=== PATIENT | male | born 1965 | race Caucasian/White ===

== ENCOUNTER 2020-06-30 14:00 | Day surgery (SDC) | payer OTHER, MEDICARE ==
[~2020-06-30] VITALS: Ht 182 cm; Wt 100.0 kg
[2020-06-30 12:31] LABS: HEMOGLOBIN 14.6 g/dL (13.3-17.7); MEAN PLATELET VOLUME 9.2 fL (9.0-12.2); WHITE BLOOD COUNT 6.2 10^3/uL (4.3-11.0)
[2020-06-30 12:47] LABS: PROTHROMBIN TIME PATIENT 13.1 SEC (12.2-14.7)
[2020-06-30 12:54] LABS: ALANINE AMINOTRANSFERASE 41 U/L (0-55); ALBUMIN 4.4 GM/DL (3.2-4.5); ALKALINE PHOSPHATASE 42 U/L (40-136); BILIRUBIN,TOTAL 0.4 MG/DL (0.1-1.0); BUN/CREATININE RATIO 14; CALCIUM 9.3 MG/DL (8.5-10.1); CARBON DIOXIDE 23 MMOL/L (21-32); CHLORIDE 108 MMOL/L (98-107); CREATININE SERUM 0.95 MG/DL (0.60-1.30); GFR ESTIMATED > 60; GLUCOSE 83 MG/DL (70-105); SODIUM 140 MMOL/L (135-145); TOTAL PROTEIN 7.4 GM/DL (6.4-8.2); TRIGLYCERIDES 116 MG/DL (<150)
[2020-06-30 12:55] LABS: CHOLESTEROL 172 MG/DL (< 200); HDL CHOLESTEROL 56 MG/DL (40-60); VLDL CHOLESTEROL 23 MG/DL (5-40)
[~2020-06-30 14:00] MED LIST: ASPI-999 PO; HEParin (CATH LAB) 2,000 ML IV ONE; LIDOCAINE 1% INJ 20 ML 20 ML VIAL ONE; LISI10TA PO; LISI20TA26 PO; MELO15TA39 PO; METH4TAB PO; MIDAZOLAM 5 MG/5 ML (VERSED) VIAL ONE; NS IV 1000 ML 1,000 ML IV SCH; NS IV 1000 ML 1,000 ML ONE; OMG1KC PO; SIMV20TA3 PO; SIMV40TA25 PO; fentaNYL INJ 100 MCG/2 ML AMP ONE
--- NOTE | 2020-06-30 14:05 | Cardiac Procedure Note-CS/ASA ---
Pre-Procedure Note Pre-Op Procedure Note H&P Reviewed The H&P was reviewed, patient examined and no changes noted. Date H&P Reviewed: Jun 30, 2020 Time H&P Reviewed: 13:30 Conscious Sedation Pre-Proced Time 13:30 ASA Score 3 For ASA 3 and 4: Consider anesthesia and medical clearance. Also, for patients with a history of failed moderate sedation consider anesthesia. Airway Lungs Heart ASA score ASA 1: a normal healthy patient ASA 2: a patient with a mild systemic disease (mid diabetes, controlled hypertension, obesity ASA 3: a patient with a severe systemic disease that limits activity (angina, COPD, prior Myocardial infarction) ASA 4: a patient with an incapacitating disease that is a constant threat to life (CHF, renal failure) ASA 5: a moribund patient not expected to survive 24 hrs. (ruptured aneurysm) ASA 6: a declared brain- patient whose organs are being harvested. For emergent operations, add the letter E after the classification Mallampati Classification Grade 1 Sedation Plan Analgesia, Amnesia, Plan communicated to team members, Discussed options with patient/fam, Discussed risks with patient/fam The patient is an appropriate candidate to undergo the planned procedure, sedation, and anesthesia. The patient immediately re-assessed prior to indication. JANESSA GLYNN MD FACP FAC CCDS Jun 30, 2020 14:05
--- NOTE | 2020-06-30 14:07 | Discharge Inst-Post CATH ---
Discharge Inst-CATH/EP Post Cardiac Cath/EP D/C Inst Follow Up/Plan F/u with Dr Etienne in 2 weeks ACTIVITY * Go Home directly and rest. * Limit activity of the leg (or wrist if it was used) for 7 days including aerobics, swimming, jogging, bicycling, etc. * Restrict stair-climbing for 7 days if possible, if not, climb up with your n on-cath leg, then bring together on the same step. * Avoid lifting, pushing, pulling or excessive movement of the affected ex tremity for 7 days. * Customary sexual activity may be resumed after 2 days-use caution not to use a position that strains or causes pain to the affected extremity. * No driving for 24 hours. * NO SMOKING. * Avoid straining for bowel movements for 7 days. * Gentle walking on level ground is allowed. * Returning to work will depend on the type of procedure and the results. Your doctor will discuss this with you. CALL YOUR DOCTOR FOR ANY OF THE FOLLOWING: *If bleeding from the puncture site occurs- Apply gentle pressure to site with clean cloth and call your doctor or EMS. * If a knot or lump forms under the skin, increases in size, or causes pain. * If bruising appears to be worsening or moving further down your leg instead of disappearing. * Temperature above 101 F. CARE OF YOUR GROIN INCISION; * Bruising or purple discoloration of the skin near the puncture site is common. * You may shower only, no bathtub bathing for 5 days. Be careful to avoid slipping as your leg may feel stiff. * If a closure device was used on your femoral artery, please see the attached guide regarding care of the device and your leg. * Leave dressing on FOR 24 hours. CARE OF YOUR WRIST INCISION; * Bruising or purple discoloration of the skin near the puncture site is common. * You may shower. * DO NOT submerge wrist. * Leave dressing on FOR 24 hours. JANESSA ETIENNE MD FACP FAC CCDS Jun 30, 2020 14:07
--- NOTE | 2020-06-30 14:07 | Discharge Inst-Cardiology ---
Discharge Inst-Cardiac Discharge Medications Continued Medications: Lisinopril (Lisinopril) 20 Mg Tablet 20 MG PO DAILY, TAB Meloxicam (Meloxicam) 15 Mg Tablet 15 MG PO DAILY PRN, TAB Harris 3 Polyunsat Fatty Acids (Fish Oil 1,000 mg Capsule) 1,000 Mg Cap 1000 MG PO DAILY, CAP Simvastatin (Simvastatin) 40 Mg Tablet 40 MG PO DAILY, TAB Discontinued Medications: Aspirin (Aspirin) 81 Mg Tab.chew 81 MG PO DAILY, TAB JANESSA GLYNN MD FACP FAC CCDS Jun 30, 2020 14:07
[2020-06-30] MEDS ORDERED: NS IV 1000 ML 1,000 ML IV SCH (14:15)
[2020-06-30] MEDS ORDERED: PATIENT MAY USE OWN MEDS, ALL PO SCH (14:15)
--- NOTE | 2020-06-30 14:23 | CARDIAC CATHETERIZATION ---
DATE OF SERVICE: 06/30/2020 CARDIAC CATHETERIZATION The patient is a 55-year-old gentleman who has multiple coronary artery disease risk factors and who has had symptoms of progressive angina and shortness of breath. Cardiac catheterization was carried out today after having obtained an informed consent. DESCRIPTION OF PROCEDURE: He was brought to the cardiac catheterization laboratory in a fasting state. Right groin was prepared and draped in the usual sterile fashion. Lidocaine 1% was used for local anesthesia. Modified Seldinger technique was used to advance a 5-Bangladeshi sheath into the right femoral artery, 5-Bangladeshi JL4 catheter for left coronary angiography, 5-Bangladeshi JR4 catheter for right coronary angiography, 5-Bangladeshi pigtail catheter was used for left heart catheterization and left ventricular angiography. Angiography of the right femoral artery was carried out through the sheath. Mynx was used to achieve hemostasis following sheath removal. He tolerated the procedure well. HEMODYNAMICS: Left ventricular end-diastolic pressure following coronary angiography was 6 mmHg. There was no significant pressure gradient on pullback across the aortic valve. CORONARY ANGIOGRAPHY: Left main coronary artery, left circumflex artery, right coronary artery do not exhibit angiographically significant disease. Left circumflex artery is dominant. LEFT VENTRICULAR ANGIOGRAPHY: Left ventricular angiography was carried out in the right anterior oblique projection. Global left ventricular systolic function normal. No regional wall motion abnormalities are seen. Left ventricular ejection fraction is approximately 60%. CONCLUSIONS: 1. No angiographically significant coronary artery disease. 2. Normal left ventricular end-diastolic pressure. 3. Normal global left ventricular systolic function with ejection fraction approximately 60%. DISCUSSION AND RECOMMENDATIONS: Based on results of the study, his symptoms do not appear to be of coronary origin. Continuing risk factor modification is advised. Outpatient followup is advised. Job ID: [id number] DocumentID: [id number] Dictated Date: 06/30/2020 14:10:58 Birth Attendant Date: 06/30/2020 14:22:10 Dictated By: JANESSA GLYNN MD, MA, FACP, FACC,
[2020-06-30 17:30] VITALS: BP 134/81
== END 2020-06-30 17:30 | disposition home or self-care (01) ==
LOC: CATH 14:00 → SDC 14:20 → CATH 17:30
PROVIDERS: ATTEND Internal Medicine Cardiovascular Disease
DX: I20.0 Unstable angina (principal); I10 Essential (primary) hypertension; E11.9 Type 2 diabetes mellitus without complications; E78.2 Mixed hyperlipidemia; Z79.82 Long term (current) use of aspirin; Z79.899 Other long term (current) drug therapy; Z88.5 Allergy status to narcotic agent; Z85.038 Personal history of other malignant neoplasm of large intestine
CPT/HCPCS: 36415; 36430; 80053; 80061; 85027; 85610; 85730; 87081; 93458

== ENCOUNTER → 2020-07-06 | Outpatient (CLI) | payer MEDICARE, OTHER ==
[~2020-07-06] MED LIST changes: -HEParin (CATH LAB) 2,000 ML IV ONE; -LIDOCAINE 1% INJ 20 ML 20 ML VIAL ONE; -MIDAZOLAM 5 MG/5 ML (VERSED) VIAL ONE; -NS IV 1000 ML 1,000 ML IV SCH; -NS IV 1000 ML 1,000 ML ONE; -fentaNYL INJ 100 MCG/2 ML AMP ONE
== END ==
LOC: CARD 14:30
PROVIDERS: ATTEND Internal Medicine Cardiovascular Disease
DX: I51.7 Cardiomegaly (principal)
CPT/HCPCS: 93225; 93226; 93306

== ENCOUNTER 2020-10-27 09:00 | Day surgery (SDC) | payer MEDICARE, OTHER ==
[~2020-10-27] VITALS: Ht 182.9 cm; Wt 98.4 kg
--- OUTSIDE RECORDS SUMMARY | 2020-10-27 07:56 | XMS REPORT | Encounter Summary ---
Author Author [facility] Organization [facility] Address Unknown Phone Unavailable Care Team Providers Care Skull Splitter Name Role Phone Dpt [facility] PCP Brenda Hauser PA-C Unavailable Unavailable Melodie Etienne MD Unavailable Reason for Visit * Reason Onset Date Comments Appointment Request 09/29/2020 Encounter Details Care Team Description Date Type Department Marilee Delatorre, STEEL MOLDER-LABORER CEMENT GUN PLACING [address] [place] [address] [phone] Appointment Request 09/29/2020 Telephone Oncology: [facility] [address] [place] [address] Social History Date Tobacco Use Types Packs/Day Years Used Never Smoker Smokeless Tobacco: Chew Current User Comments Alcohol Use Standard Drinks/Week Yes 2 (1 standard drink = 0.6 o z pure alcohol) Alcohol Habits Answer Date Recorded How often do you have a drink containing alcohol? No t asked How many drinks containing alcohol do you have on No t asked a typical day when you are drinking? How often do you have six or more drinks on one Weekly 11/01/2019 occasion? Sex Assigned at Date Recorded Male 11/04/2019 1:27 PM CDT Date Recorded COVID-19 Exposure Response 09/24/2020 11:58 AM CDT In the last month, have you been in contact with No / Unsure someone who was confirmed or suspected to have Coronavirus / COVID-19? documented as of this encounter Functional Status Date of Assessment Functional Status Response 11/27/2019 Does the patient have a hearing impairment: No 11/27/2019 Does the patient have a visual impairment: Yes documented as of this encounter Miscellaneous Notes * Telephone Encounter - Minh Marroquin - 09/29/2020 2:09 PM CDT Spoke with patient and scheduled 6 mos rtc w/psa lab prior for provider Marilee aguilera. * Telephone Encounter - Minh Marroquin - 09/29/2020 2:09 PM CDT ----- Message from PASHA Walsh sent at 09/28/2020 6:14 PM CDT ----- Regarding: schedule a FU visit Minh, Will you please schedule a follow-up visit to see me in 6 months with a PSA 2 to 7 days prior to our clinic visit?Please call him with official date and time.The orders are inThank you documented in this encounter Plan of Treatment Not on filedocumented as of this encounter Visit Diagnoses Not on filedocumented in this encounter Additional Health Concerns Assessment Noted Time A fall risk assessment has been completed for the pat ient 08/31/2020 1:08 PM CDT documented as of this encounter
--- OUTSIDE RECORDS SUMMARY | 2020-10-27 07:56 | XMS REPORT | Encounter Summary ---
Author Author [facility] Organization [facility] Address Unknown Phone Unavailable Care Team Providers Care Breaker Operator Name Role Phone Dpt [facility] PCP Brenda Hauser PA-C Unavailable Unavailable Melodie Etienne MD Unavailable Reason for Visit * Reason Onset Date Comments Medication Follow-up 09/02/2020 Antibiotic for bi opsy... Encounter Details Care Team Description Date Type Department Marilee Delatorre, PHYSICAL SCIENCES INSTRUCTOR-CAUSE ANALYST [address] [place] [address] [phone] Medication Follow-up (Antibiotic for bio psy...) 09/02/2020 Telephone Oncology: [address] [address] Social History Date Tobacco Use Types Packs/Day [...] PM CDT Date Recorded COVID-19 Exposure Response 08/31/2020 12:44 PM CDT In the last month, have you been in contact with No / Unsure someone who was confirmed or suspected to have Coronavirus / COVID-19? documented as of this encounter Functional Status Date of Assessment Functional Status Response 11/27/2019 Does the patient have a hearing impairment: No 11/27/2019 Does the patient have a visual impairment: Yes documented as of this encounter Ordered Prescriptions Start Date End Date Prescription Sig Dispensed Refills 09/23/2020 09/26/2020 ciprofloxacin (CIPRO) 500 Take one 6 tablet 0 mg tablet tablet by mouth twice daily for 3 days. Start day prior to prostate biopsy. documented in this encounter Miscellaneous Notes * Telephone Encounter - Marilee Delatorre APRN-NP - 09/02/2020 5:11 PM CDT I called and spoke with Torrey as I received a message from John at the [facility] pharmacy regarding the ciprofloxacin prescription that I sent in that it would n ot be [place] under the [facility] they would prefer to change to Bactrim DX or another antibiotic. We prefer to stay in the fluoroquinolone group. Mr. Magana stated t hat his letter states he has to use a community-based pharmacy and [facility] does not participate there locally. He does use [place] [facility]. I did call [place] [facility], the Cipro 500 mg, 1 tablet twice a day, total of 6 pills will cost him $4, he is okay to send this prescription to the local pharmacy. Torrey provided me with a website to look at www.[place]findlocations to locate a community-based pharmacy. He states he did call the [facility] in [place] and they do not participate in the community-based care that the [place] is talking about. I called and left a message with John at the [facility] pharmacy to let them know that I sent his prescription to local pharmacy as would prefer to stay in the f luoroquinolone group for his prostate biopsy. I provided [phone] if he had any questions or concerns. documented in this encounter Plan of Treatment Not on filedocumented as of this encounter Visit Diagnoses Not on filedocumented in this encounter Discontinued Medications Start Date End Date Medication Sig Discontinue Reason 09/23/2020 09/02/2020 ciprofloxacin (CIPRO) 500 Take one Reorder mg tablet tablet by mouth twice daily for 3 days. Start day prior to prostate biopsy. documented as of this encounter Additional Health Concerns Assessment Noted Time A fall risk assessment has been completed for the pat ient 08/31/2020 1:08 PM CDT documented as of this encounter
--- OUTSIDE RECORDS SUMMARY | 2020-10-27 07:56 | XMS REPORT | Clinical Summary ---
Author Author [facility] Organization [facility] Address Unknown Phone Unavailable Care Team Providers Care Line Repairer Tower Name Role Phone [facility] P[facility] Brenda Hauser PA-C Unavailable Unavailable Melodie Etienne MD Unavailable Source Comments Some departments are not documenting in the electronic medical record. If you d o not see the information that you expected, contact Release of Information in [facility] Information Management department at [phone] for further assistan ce in locating additional records.[facility] Allergies Comments Active Allergy Reactions Severity Noted Date Naproxen RASH, HIVES Medium 09/24/2010 Medications End Date Status Medication Sig Dispensed Refills Start Date Active aspirin EC 325 mg tablet Take 325 mg 0 by mouth daily. Active simvastatin (ZOCOR) 10 mg Take 10 mg by 0 06/04 tablet mouth daily. 5 Active lisinopriL (ZESTRIL) 40 Take 40 mg by 0 mg tablet mouth daily. Active hydroCHLOROthiazide Take 25 mg by 0 (HYDRODIURIL) 25 mg mouth daily. tablet Active docosahexaenoic acid/epa Take by 0 (FISH OIL PO) mouth daily. Active gabapentin (NEURONTIN) Take 300 mg 0 02/24/ 01 300 mg capsule by mouth at 7 bedtime as needed. Active temazepam (RESTORIL) 15 0 08/05/ mg capsule 1 Active meloxicam (MOBIC) 15 mg Take 15 mg by 0 tablet mouth as Needed for Pain. Active tamsulosin (FLOMAX) 0.4 Take one 30 capsule 3 / mg capsule capsule by 1 mouth daily. Do not crush, chew or open capsules. Take 30 minutes following the same meal each day. Active Problems Problem Noted Date Elevated PSA 08/31/2020 Last Assessment & Plan: Formatting of this note might be differ ent from the original. I had the pleasure of visiting with Mr. Adalberto Mckinney to discuss his PSA. I reviewed what PSA is and why it is us ed in the screening for prostate cancer. I then explained how PSA level s factor into decision making for further prostate cancer testing. Addit ionally, we reviewed how his current health factors into the decision to pur jay prostate cancer screening. We then discussed initial steps for a b iopsy naive patient with an elevated PSA. Specifically I reviewed the role of transrectal ultrasound guided prostate biopsies as the standar d of care for further testing. I reviewed the procedural risks, includin g hematuria, hematospermia, hematochezia, pain, infection, and even transient erectile dysfunction. Additional options reviewed included up -front mpMRI with directed biopsy if a lesion is identified versus standa rd biopsy if the mpMRI were negative. I explained that this approa ch may reduce the need for a biopsy and improve the accuracy, however, this is not the standard of care approach, and therefore there is the ri sk that he would be liable for out of pocket expense if he were to choose upfront MRI, patient states that he cannot have an MRI. Similarly I reviewed the role of biomar kers in improving our ability to assess the risk of harboring prostate c ancer, specifically the ExoDx. Ultimately the patient elected repeat P SA today. Therefore our plan is as follows: 1. PSA today, will call with the resul ts 2. If PSA is still elevated, will purs ue prostate biopsy 3. Biopsy instructions reviewed in cli cecily and provided in AVS Chronic bilateral low back pain with left-sided sciat ica 11/27/2019 Lumbar radiculopathy 11/06/2019 Lumbar spondylosis 11/06/2019 Encounters Care Team Description Date Type Specialty Marilee Delatorre APRN-NP Appointment Request 09/29/2020 Telephone Oncology Marilee Delatorre APRN-NP Results (pathology from prostate biopsy) 09/28/2020 Telephone Oncology Rosalinda Cody MD Elevated PSA (Primary Dx) 09/24/2020 Procedure visit Oncology 09/24/2020 Travel Marilee Delatorre APRN-NP Medication Follow-up (Antibiotic for bio psy...) 09/02/2020 Telephone Oncology Marilee Delatorre APRN-NP Elevated PSA (Primary Dx) 08/31/2020 Office Visit Oncology Marilee Delatorre APRN-NP Results (PSA from today after clinic vis it) 08/31/2020 Telephone Oncology 08/31/2020 Travel Marilee Delatorre APRN-NP Navigation Assessment 08/23/2020 Telephone Oncology from Last 3 Months Surgical History Surgery Date Site/Laterality Comments ROTATOR CUFF REPAIR 03/06/2012 - Left 03/05/2013 HX KNEE SURGERY 03/06/1979 - Right torn meniscus 03/05/1980 SHOULDER SURGERY 03/06/2010 - Right bone spur 03/05/2011 ANKLE SURGERY 01/04/2017 Right 2 moles - 02/02/2017 CATARACT REMOVAL Bilateral HX HEART CATHETERIZATION 07/04/2020 - palpitations, going to have sleep study 08/03/2020 Medical History Medical History Date Comments Hypertension History of colon cancer stage 4 History of skin cancer Cancer of colon (HCC) 2013 colon resection, 8 rounds of chemotherapy at the [facility] Cancer of skin 2019 melanoma, right inn er ankle, right calf, right side of back, left arm Back pain Family History Medical History Relation Name Comments Hypertension Father Hypertension Mother COPD Sister Georgina Post-Traumatic Stress Sister Justine Disorder (PTSD) Relation Name Status Comments Father alzheimers (Age 80) Half Brother Humza Alive moms side Half Brother Alive moms side Mother dies in early 60's Sister Georgina Alive Sister Justine Alive Social History Date Tobacco Use Types Packs/Day [...] Date Recorded Male 11/04/2019 1:27 PM CDT Last Filed Vital Signs Reading Time Taken Comments Vital Sign 111/55 09/24/2020 12:29 PM CDT Blood Pressure 73 09/24/2020 12:29 PM CDT Pulse 36.4 C (97.5 F) 09/24/2020 12:29 PM CDT Temperature 18 09/24/2020 12:29 PM CDT Respiratory Rate 100% 09/24/2020 12:29 PM CDT Oxygen Saturation - - Inhaled Oxygen Concentration 96.6 kg (213 lb) 09/24/2020 12:29 PM CDT Weight 177.3 cm (5' 9.8") 09/24/2020 12:29 PM CDT Height 30.74 09/24/2020 12:29 PM CDT Body Mass Index Plan of Treatment Health Maintenance Due Date Last Done Comments MEDICARE ANNUAL WELLNESS 1965 VISIT HIV SCREENING 06/23/1978 DTAP/TDAP VACCINES (1 - 06/23/1981 Tdap) HEPATITIS C SCREENING 06/23/1981 PHYSICAL (COMPREHENSIVE) 06/23/1981 EXAM COLORECTAL CANCER 06/23/2013 SCREENING SHINGLES RECOMBINANT 06/23/2013 VACCINE (1 of 2) INFLUENZA VACCINE 12/04/2020 Procedures Comments Procedure Name Priority Date/Time Associated Diag nosis OK US GUIDANCE NEEDLE Routine 09/24/2020 Elevated PSA PLACEMENT IMG S&I 1:00 PM CDT OK PROSTATE NEEDLE BIOPSY Routine 09/24/2020 Elev ated PSA ANY APPROACH 1:00 PM CDT HC LEVEL 4 PROSTATE 09/24/2020 BIOPSY 12:03 PM CDT HC PROSTATIC SPECIF Routine 08/31/2020 Elevated P SA AG(PSA);TOT 1:58 PM CDT from Last 3 Months Results * TRUS/PROSTATE BX/NEEDLE GUIDE UROLOGY (09/24/2020 1:00 PM CDT) Narrative Performed At Rosalinda Cody MD 09/24/2020 1:38 PM [facility] OUT[facility] Procedure: Transrectal ultrasound, ul trasound interpretation, periprostatic block, and 12 prostate bi opsies. Surgeon: Rosalinda Cody MD Anesthesia: 1% Lidocaine Block Complications: None. Blood Loss: Negligible. Indication for Procedure: 55 y.o. mal e w/ an elevated PSA. Completed enemas & started abx, as dire cted. Procedure: He was placed in the left lateral decubitus position. Time out was performed with verificatio n of patient name and date of by the patient and team. RAMIREZ performed. No palpable prostate nodules or induration . 7.5 MHz TRUS introduced into rectum w/o difficulty. Prostate visualized & scanned from base to apex & lateral lobe to lateral lobe. No hyper- & hypoechoic lesions. Periprostatic 1% Lidocaine block performed bilaterally at the junction of the pros jimenez base & seminal vesicles; 5 cc injected to each side. TRUS Prostate Vol = 50.5 mL (R)-side: 6 biopsy cores (L)-side: 6 biopsy cores Digital pressure applied to prostate x 1-2 min following PNBx. He tolerated the procedure well, and le ft the exam room in a pleasant disposition. Verbal & writte n post-procedure instructions given to pt. ASSESSMENT/ PLAN: 1. Elevated PSA - TRUS/ PNBx performed today, as detail ed above. - Complete abx, as directed. - Patient will be called with results. - RTC based on biopsy results. Performing Organization Address City/State/ZIP Code P carol Number OTHER OUTSIDE LAB * SURGICAL PATHOLOGY (09/24/2020 12:03 PM CDT) PATHOLOGY [email or web address] Department of Pathology and Laboratory Medicine [address] [place] [id number] Surgical Pathology Office: [phone] SURGICAL PATHOLOGY REPORT NAME: ADALBERTO RUSSO SURG PATH #: [id number] MR #: [id number] SPECIMEN CLASS: SI BILLING #: [id number] ALT ID #: LOCATION: [id number] DATE OF PROCEDURE: 09/24/2020 AGE: 55 SEX: M DATE RECEIVED: 09/24/2020 : 1965 TIME RECEIVED: 12:03 PHYSICIAN: ROSALINDA CODY MD DATE OF REPORT: 09/25/2020 COPY TO: DATE OF PRINTIN09/25/2020 ############################## ############################## ############ Final Diagnosis: A. Prostate, "left lateral base", needle biopsy: Benign prostatic tissue. B. Prostate, "left medial base", needle biopsy: Benign prostatic tissue. C. Prostate, "left lateral mid", needle biopsy: Benign prostatic tissue. D. Prostate, "left medial mid", needle biopsy: Benign prostatic tissue. E. Prostate, "left lateral apex", needle biopsy: Benign prostatic tissue. F. Prostate, "left medial apex", needle biopsy: Benign prostatic tissue. G. Prostate, "right lateral base", needle biopsy: Benign prostatic tissue. H. Prostate, "right medial base", needle biopsy: Benign prostatic tissue. I. Prostate, "right lateral mid", needle biopsy: Benign prostatic tissue. J. Prostate, "right medial mid", needle biopsy: Benign prostatic tissue. K. Prostate, "right lateral apex", needle biopsy: Benign prostatic tissue. L. Prostate, "right medial apex", needle biopsy: Benign prostatic tissue. Attestation: By this signature, I attest that I have personally formulated the final interpretation expressed in this report and that the above diagnosis is based upon my examination of the slides and/or other material indicated in this report. +++ +++ Nancy Gonzalez DO, Resident ksw/09/24/2020 ############################## ############################## ############ Material Received: A: left lateral base B: left medial base C: left lateral mid D: left medial mid E: left lateral apex F: left medial apex G: right lateral base H: right medial base I: right lateral mid J: right medial mid K: right lateral apex L: right medial apex History: 55-year-old male. Gross Description: A. Received in formalin labeled "left lateral base" is a cylindrical core of plasencia-white tissue measuring 1.5 x 0.1 x 0.1 cm. The specimen is submitted in cassette A1. (crow) B. Received in formalin labeled "left medial base" is a cylindrical core of plasencia-white tissue measuring 1.5 x 0.1 x 0.1 cm. The specimen is submitted in cassette B1. (crow) C. Received in formalin labeled "left lateral mid" is a cylindrical core of plasencia-white tissue measuring 1.4 x 0.1 x 0.1 cm. The specimen is submitted in cassette C1. (crow) D. Received in formalin labeled "left medial mid" is a cylindrical core of plasencia-white tissue measuring 1.5 x 0.1 x 0.1 cm. The specimen is submitted in cassette D1. (crow) E. Received in formalin labeled "left lateral apex" is a cylindrical core of plasencia-white tissue measuring 1.3 x 0.1 x 0.1 cm. The specimen is submitted in cassette E1. (crow) F. Received in formalin labeled "left medial apex" is a cylindrical core of plasencia-white tissue measuring 1.5 x 0.1 x 0.1 cm. The specimen is submitted in cassette F1. (crow) G. Received in formalin labeled "right lateral base" is a cylindrical core of plasencia-white tissue measuring 1.5 x 0.1 x 0.1 cm. The specimen is submitted in cassette G1. (crow) H. Received in formalin labeled "right medial base" is a cylindrical core of plasencia-white tissue measuring 1.4 x 0.1 x 0.1 cm. The specimen is submitted in cassette H1. (crow) I. Received in formalin labeled "right lateral mid" is a cylindrical core of plasencia-white tissue measuring 1.5 x 0.1 x 0.1 cm. The specimen is submitted in cassette I1. (crow) J. Received in formalin labeled "right medial mid" is a cylindrical core of plasencia-white tissue measuring 1.4 x 0.1 x0.1 cm. The specimen is submitted in cassette J1. (crow) K. Received in formalin labeled "right lateral apex" is a cylindrical core of plasencia-white tissue measuring 1.5 x 0.1 x 0.1 cm. The specimen is submitted in cassette K1. (crow) L. Received in formalin labeled "right medial apex" is a cylindrical core of plasencia-white tissue measuring 1.5 x 0.1 x 0.1 cm. The specimen is submitted in cassette L1. (crow) gm09/24/2020 Specimen Performing Organization Address City/State/ZIP Code P carol Number [facility] [address] [place] [address] * PROSTATIC SPECIFIC ANTIGEN-PSA (08/31/2020 1:58 PM CDT) Prostatic 5.54 (H) <3.01 NG/ML [facility] Specific Comment: Antigen REFERENCE RANGES AGE PSA VALUE <50 <=1.5 50-54 <=2.0 55-59 <=3.0 60-69 <=4.0 70+ <=6.0 Specimen Blood Performing Organization Address City/State/ZIP Code P carol Number [facility] [address] [place] [address] from Last 3 Months Insurance Type Payer Benefit Subscriber ID Effective Phone Address Plan / Dates Group Medicare MEDICARE MEDICARE [id number] 2003-P PART A AND resent B [facility] [id number] 2020-1 2020 Advance Directives Patient Pet[employer]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
--- OUTSIDE RECORDS SUMMARY | 2020-10-27 07:56 | XMS REPORT | Encounter Summary ---
Author Author [facility] Organization [facility] Address Unknown Phone Unavailable Care Team Providers Care Superintendent Circus Name Role Phone [facility]pt [facility] PCP Brenda Hauser PA-C Unavailable Unavailable Melodie Etienne MD Unavailable Reason for Visit * Reason Onset Date Comments Results 09/28/2020 pathology from pros jimenez biopsy Encounter Details Care Team Description Date Type Department Marilee Valencia, CELLULOID TRIMMER-TOWER [employer]FFIC CONTROL SPECIALIST [address] [place] [address] [phone] Results (pathology from prostate biopsy) 09/28/2020 Telephone Oncology: [address] [phone] Social History Date Tobacco Use Types Packs/Day [...] Date End Date Prescription Sig Dispensed Refills 09/28/2020 tamsulosin (FLOMAX) 0.4 Take one 30 capsule 3 mg capsule capsule by mouth daily. Do not crush, chew or open capsules. Take 30 minutes following the same meal each day. documented in this encounter Miscellaneous Notes * Addendum Note - Marilee Valencia APRN-NP - 09/28/2020 6:42 PM CDT Addended by: MARILEE VALENCIA on: 09/28/2020 06:42 PM Modules accepted: Orders * Telephone Encounter - Marilee Valencia APRN-NP - 09/28/2020 6:12 PM CDT I called and spoke with Gene regarding his pathology results from his prostate b iopsy that was performed on 09/24/2020., Pathology revealed benign prostatic ti ssue. I advised we would recommend to continue to monitor his PSA every 6 month s, he is agreeable to this plan. I advised I would place some orders and send a message to the chef passenger vessel for him to be contacted with an official date and time for return visit in 6 months. He appreciated the phone call. He did not have any further questions. He inquired since his biopsy pathology is negative, to help address his urinatio n, he does have nocturia, hesitancy and intermittent break in his stream. He do es feel that he empties his bladder most the time. I did advise we could start him on tamsulosin 0.4 mg daily, he was agreeable to this plan and wanted this se nt to the [facility]. I did review possible side effects of orthostatic hypotension and to take the me dication before bed and retrograde ejaculation. Final Diagnosis: A. Prostate, "left lateral base", [...] medial apex", needle biopsy: Benign prostatic tissue. documented in this encounter Plan of Treatment Order Schedule Name Type Priority Associated Diag noses Expected: 03/27/2021 (Approximate), Expi res: 09/28/2021 PROSTATIC SPECIFIC Lab Routine Elevated PS A ANTIGEN-PSA documented as of this encounter Visit Diagnoses Diagnosis Elevated PSA - Primary Elevated prostate specific antigen (PSA ) documented in this encounter Additional Health Concerns Assessment Noted Time A fall risk assessment has been completed for the pat ient 08/31/2020 1:08 PM CDT documented as of this encounter
--- OUTSIDE RECORDS SUMMARY | 2020-10-27 07:56 | XMS REPORT | Encounter Summary ---
Author Author [facility] Organization [facility] Address Unknown Phone Unavailable Care Team Providers Care Glass Inspector Name Role Phone [facility] P[facility] Brenda Hauser PA-C Unavailable Unavailable Melodie Etienne MD Unavailable Reason for Visit * Reason Comments Procedure TRUS Bx Encounter Details Care Team Description [place] [address] [place] [address] Elevated PSA (Primary Dx) 09/24/2020 Procedure visit Oncology: Zaki rg, [facility] [address] [place] [address] Social History Date Tobacco Use Types Packs/Day [...] / COVID-19? documented as of this encounter Last Filed Vital Signs Reading Time Taken [...] 09/24/2020 12:29 PM CDT Body Mass Index documented in this encounter Functional Status Date of Assessment Functional Status Response 11/27/2019 Does the patient have a hearing impairment: No 11/27/2019 Does the patient have a visual impairment: Yes documented as of this encounter Patient Instructions * Patient Instructions* Roseanne Jain, RN - 09/24/2020 1:00 PM CDT Images from the original note were not included. Prostate Biopsy Cancer occurs when abnormal cells form a tumor. A tumor is a lump of cells that grows uncontrolled. Early tests that may indicate cancer of the prostate include a digital rectal exam, a PSA (prostate specific antigen blood test), ultrasound, and others. A core needle biopsy will be done if your healthcare provider thinks you have prostate cancer. A thin needle is used to remove small samples of pr ostate tissue. Often a few biopsies are taken. These samples are checked for can cer. Taking tissue samples A biopsy takes about 15to 20 minutes. You may be given an enema or suppository before the biopsy to clear the bowels. Antibiotics are given at least an hour b efore the biopsy. During the procedure: You will be given antibiotics to prevent infection. You may be given a sedative, local pain killer, or pain medicine. A small ultrasoundprobe is put into the rectum as you lie on your side. A p icture of your prostate can then be seen on a screen. This is called a transrect al ultrasound (TRUS). Your healthcare provider will use the TRUS picture as a guide. He or she will use a thin needle to remove tiny tissue samples from some sites in the prostate. These tissue samples are sent to the pathology department. They are looked at under a microscope so a diagnosis can be made. Risks and possible complications of core needle biopsy Infection Blood in urine, stool, or semen Pain The biopsy misses the tumor Home care You may have had the biopsy done through your rectum, your urethra, or through t he skin between your scrotum and rectum. Your healthcare provider will tell you what to do after the biopsy. These instructions are based on your health conditi on, the type of biopsy, and your providers practices. Your provider may give you pain medicine such as acetaminophen or ibuprofen f or discomfort or pain. Follow your providers instructions for taking these me dicines. Dont take aspirin or ibuprofen after the procedure.If you have an ongoing (chronic) liver or kidney disease, talk with your provider before taking these medicines. Also talk with your provider if youve had a stomach ulcer or GI (gastrointestinal) bleeding. Let your provider know all the medicines you c urrently take. You may need to take antibiotics for 1 to 2 days. This will help prevent an i nfection. Signs of an infection include chills, pain, or fever. You may be told to drink 8 ounces of water every 30 minutes for 2 hours. This will help ease any discomfort. You can also take a warm bath. Or you can put a warm, damp washcloth over your urethra to help ease the pain. You may see minor bleeding after the procedure. This is normal and often need s no treatment. You may see blood in your urine or semen (rust color). This may last for 1 to 2 months. You may also have light bleeding from your rectum if you have hemorrhoids. This can last up to 7- to 14 days. When you urinate you may go more often, feel burning, and see pink-tinged uri ne for up to 7 to 14 days after the biopsy. Your provider will tell you when you can go back to your normal activities. T his includes sex, exercise, and straining physically. Discuss these with your pr ovider. When to seek medical advice Call your healthcare provider right away if any of these occur: You arent able to urinate, with or without your bladder feeling full, or s ee that you have less flow of urine Chills Fever of 100.4F (38C) or higher, or as directed by your provider Severe pain Signs of an infection that is getting worse. These include worsening pain, pa in in your side under the rib cage or in the low back, or bad-smelling urine. Blood clots or bright red blood in your stool or urine You feel confused or very tired Your lower belly feels firm over your bladder area [employer] last reviewed this educational content on 08/04/201819990474-3615 [employer]. All rights reserved. This information is not intended as a substitute for professional medical care. Always follow your healthcare professional's instructions. Prostate Biopsy Cancer occurs when abnormal cells form a tumor. A tumor is a lump of cells that grows uncontrolled. Early tests that may indicate cancer of the prostate include a digital rectal exam, a PSA (prostate specific antigen blood test), ultrasound, and others. A core needle biopsy will be done if your healthcare provider thinks you have prostate cancer. A thin needle is used to remove small samples of pr ostate tissue. Often a few biopsies are taken. These samples are checked for can cer. Taking tissue samples A biopsy takes about 15to 20 minutes. You may be given an enema or suppository before the biopsy to clear the bowels. Antibiotics are given at least an hour b efore the biopsy. During the procedure: You will be given antibiotics to prevent infection. You may be given a sedative, local pain killer, or pain medicine. A small ultrasoundprobe is put into the rectum as you lie on your side. A p icture of your prostate can then be seen on a screen. This is called a transrect al ultrasound (TRUS). Your healthcare provider will use the TRUS picture as a guide. He or she will use a thin needle to remove tiny tissue samples from some sites in the prostate. These tissue samples are sent to the pathology department. They are looked at under a microscope so a diagnosis can be made. Risks and possible complications of core needle biopsy Infection Blood in urine, stool, or semen Pain The biopsy misses the tumor Home care You may have had the biopsy done through your rectum, your urethra, or through t he skin between your scrotum and rectum. Your healthcare provider will tell you what to do after the biopsy. These instructions are based on your health conditi on, the type of biopsy, and your providers practices. Your provider may give you pain medicine such as acetaminophen or ibuprofen f or discomfort or pain. Follow your providers instructions for taking these me dicines. Dont take aspirin or ibuprofen after the procedure.If you have an ongoing (chronic) liver or kidney disease, talk with your provider before taking these medicines. Also talk with your provider if youve had a stomach ulcer or GI (gastrointestinal) bleeding. Let your provider know all the medicines you c urrently take. You may need to take antibiotics for 1 to 2 days. This will help prevent an i nfection. Signs of an infection include chills, pain, or fever. You may be told to drink 8 ounces of water every 30 minutes for 2 hours. This will help ease any discomfort. You can also take a warm bath. Or you can put a warm, damp washcloth over your urethra to help ease the pain. You may see minor bleeding after the procedure. This is normal and often need s no treatment. You may see blood in your urine or semen (rust color). This may last for 1 to 2 months. You may also have light bleeding from your rectum if you have hemorrhoids. This can last up to 7- to 14 days. When you urinate you may go more often, feel burning, and see pink-tinged uri ne for up to 7 to 14 days after the biopsy. Your provider will tell you when you can go back to your normal activities. T his includes sex, exercise, and straining physically. Discuss these with your pr ovider. When to seek medical advice Call your healthcare provider right away if any of these occur: You arent able to urinate, with or without your bladder feeling full, or s ee that you have less flow of urine Chills Fever of 100.4F (38C) or higher, or as directed by your provider Severe pain Signs of an infection that is getting worse. These include worsening pain, pa in in your side under the rib cage or in the low back, or bad-smelling urine. Blood clots or bright red blood in your stool or urine You feel confused or very tired Your lower belly feels firm over your bladder area [employer] last reviewed this educational content on 08/04/201819995954-1853 [employer]. All rights reserved. This information is not intended as a substitute for professional medical care. Always follow your healthcare professional's instructions. Prostate Biopsy Cancer occurs when abnormal cells form a tumor. A tumor is a lump of cells that grows uncontrolled. Early tests that may indicate cancer of the prostate include a digital rectal exam, a PSA (prostate specific antigen blood test), ultrasound, and others. A core needle biopsy will be done if your healthcare provider thinks you have prostate cancer. A thin needle is used to remove small samples of pr ostate tissue. Often a few biopsies are taken. These samples are checked for can cer. Taking tissue samples A biopsy takes about 15to 20 minutes. You may be given an enema or suppository before the biopsy to clear the bowels. Antibiotics are given at least an hour b efore the biopsy. During the procedure: You will be given antibiotics to prevent infection. You may be given a sedative, local pain killer, or pain medicine. A small ultrasoundprobe is put into the rectum as you lie on your side. A p icture of your prostate can then be seen on a screen. This is called a transrect al ultrasound (TRUS). Your healthcare provider will use the TRUS picture as a guide. He or she will use a thin needle to remove tiny tissue samples from some sites in the prostate. These tissue samples are sent to the pathology department. They are looked at under a microscope so a diagnosis can be made. Risks and possible complications of core needle biopsy Infection Blood in urine, stool, or semen Pain The biopsy misses the tumor Home care You may have had the biopsy done through your rectum, your urethra, or through t he skin between your scrotum and rectum. Your healthcare provider will tell you what to do after the biopsy. These instructions are based on your health conditi on, the type of biopsy, and your providers practices. Your provider may give you pain medicine such as acetaminophen or ibuprofen f or discomfort or pain. Follow your providers instructions for taking these me dicines. Dont take aspirin or ibuprofen after the procedure.If you have an ongoing (chronic) liver or kidney disease, talk with your provider before taking these medicines. Also talk with your provider if youve had a stomach ulcer or GI (gastrointestinal) bleeding. Let your provider know all the medicines you c urrently take. You may need to take antibiotics for 1 to 2 days. This will help prevent an i nfection. Signs of an infection include chills, pain, or fever. You may be told to drink 8 ounces of water every 30 minutes for 2 hours. This will help ease any discomfort. You can also take a warm bath. Or you can put a warm, damp washcloth over your urethra to help ease the pain. You may see minor bleeding after the procedure. This is normal and often need s no treatment. You may see blood in your urine or semen (rust color). This may last for 1 to 2 months. You may also have light bleeding from your rectum if you have hemorrhoids. This can last up to 7- to 14 days. When you urinate you may go more often, feel burning, and see pink-tinged uri ne for up to 7 to 14 days after the biopsy. Your provider will tell you when you can go back to your normal activities. T his includes sex, exercise, and straining physically. Discuss these with your pr ovider. When to seek medical advice Call your healthcare provider right away if any of these occur: You arent able to urinate, with or without your bladder feeling full, or s ee that you have less flow of urine Chills Fever of 100.4F (38C) or higher, or as directed by your provider Severe pain Signs of an infection that is getting worse. These include worsening pain, pa in in your side under the rib cage or in the low back, or bad-smelling urine. Blood clots or bright red blood in your stool or urine You feel confused or very tired Your lower belly feels firm over your bladder area [employer] last reviewed this educational content on 08/04/201819996217-9115 [employer]. All rights reserved. This information is not intended as a substitute for professional medical care. Always follow your healthcare professional's instructions. documented in this encounter Progress Notes * Rosalinda Cody MD - 09/24/2020 1:00 PM CDT Name: Adalberto Russo (Gene) : 1965 AGE: 55 y.o. DATE OF SERVICE: 09/24/2020 Subjective: Reason for Visit: Procedure (TRUS Bx) Adalberto Russo (Gene) is a 55 y.o. male. Cancer Staging No matching staging information was found for the patient. History of Present Illness Mr. Adalberto Russo is a very pleasant 55 y.o. man who presents today for a ela dard template transrectal ultrasound guided prostate biopsy for an elevated PSA. He has taken his antibiotics. Review of Systems Constitutional: Negative. HENT: Negative. Eyes: Negative. Respiratory: Negative. Cardiovascular: Positive for palpitations. Gastrointestinal: Negative. Endocrine: Negative. Genitourinary: Negative. Musculoskeletal: Positive for back pain. Skin: Negative. Allergic/Immunologic: Negative. Neurological: Negative. Hematological: Negative. Psychiatric/Behavioral: Negative. All other systems reviewed and are negative. Objective: aspirin EC 325 mg tablet Take 325 mg by mouth daily. ciprofloxacin (CIPRO) 500 mg tablet Take one tablet by mouth twice daily for 3 days. Start day prior to prostate biopsy. docosahexaenoic acid/epa (FISH OIL PO) Take by mouth daily. gabapentin (NEURONTIN) 300 mg capsule Take 300 mg by mouth at bedtime as nee ded. hydroCHLOROthiazide (HYDRODIURIL) 25 mg tablet Take 25 mg by mouth daily. lisinopriL (ZESTRIL) 40 mg tablet Take 40 mg by mouth daily. meloxicam (MOBIC) 15 mg tablet Take 15 mg by mouth as Needed for Pain. simvastatin (ZOCOR) 10 mg tablet Take 10 mg by mouth daily. temazepam (RESTORIL) 15 mg capsule Vitals: 09/24/20 1229 Pulse: 73 Resp: 18 Temp: 36.4 C (97.5 F) TempSrc: Temporal SpO2: 100% Weight: 96.6 kg (213 lb) Height: 177.3 cm (69.8") PainSc: Zero Body mass index is 30.74 kg/m. Pain Score: Zero Pain Addressed: N/A Patient Evaluated for a Clinical Trial: Patient not eligible for a treatment tri al (including not needing treatment, needs palliative care, in remission). Eastern Cooperative Oncology Group performance status is 0, Fully active, able t o carry on all pre-disease performance without restriction.. Physical Exam Assessment and Plan: Assessment: Elevated PSA - Prostate biopsy - Risks reviewed - Consent obtained documented in this encounter Procedure Notes * Rosalinda Cody MD - 09/24/2020 1:00 PM CDT Associated Order(s): TRUS/PROSTATE BX/NEEDLE GUIDE UROLOGY Procedure(s): WY PROSTATE NEEDLE BIOPSY ANY APPROACH; WY US GUIDANCE NEEDLE PLAC EMENT IMG S&I Pre-Procedure Diagnose(s): Elevated PSA Procedure: Transrectal ultrasound, ultrasound interpretation, periprostatic blo ck, and 12 prostate biopsies. Surgeon: Rosalinda Cody MD Anesthesia: 1% Lidocaine Block Complications: None. Blood Loss: Negligible. Indication for Procedure: 55 y.o. male w/ an elevated PSA. Completed enemas & started abx, as directed. Procedure: He was placed in the left lateral decubitus position. Time out was performed with verification of patient name and date of by the patient and team. RAMIREZ performed. No palpable prostate nodules or induration. 7.5 MHz TRUS introduced into rectum w/o difficulty. Prostate visualized & scanned from base to apex & lateral lobe to lateral lobe. No hyper- & hypoechoic lesions. Periprostatic 1% Lidocaine block performed bilaterally at the junction of the prostate base & seminal vesicles; 5 cc injected to each side. TRUS Prostate Vol = 50.5 mL (R)-side: 6 biopsy cores (L)-side: 6 biopsy cores Digital pressure applied to prostate x 1-2 min following PNBx. He tolerated the procedure well, and left the exam room in a pleasant dispositio n. Verbal & written post-procedure instructions given to pt. ASSESSMENT/ PLAN: 1. Elevated PSA - TRUS/ PNBx performed today, as detailed above. - Complete abx, as directed. - Patient will be called with results. - RTC based on biopsy results. documented in this encounter Plan of Treatment Order Schedule Name Type Priority Associated Diag noses Ordered: 09/24/2020 PATHOLOGY SURGICAL > 5 Pathology Routine Elevate d PSA SPECIMENS documented as of this encounter Procedures Comments Procedure Name Priority Date/Time Associated Diag nosis WY US GUIDANCE NEEDLE Routine 09/24/2020 Elevated PSA PLACEMENT IMG S&I 1:00 PM CDT WY PROSTATE NEEDLE BIOPSY Routine 09/24/2020 Elev ated PSA ANY APPROACH 1:00 PM CDT HC LEVEL 4 PROSTATE 09/24/2020 BIOPSY 12:03 PM CDT documented in this encounter Results * TRUS/PROSTATE BX/NEEDLE GUIDE UROLOGY (09/24/2020 [...] PATHOLOGY (09/24/2020 12:03 PM CDT) PATHOLOGY [facility] [employer] [facility] [email or web address] Department of Pathology and Laboratory Medicine [address] [place] [address] Surgical Pathology Office: [phone] SURGICAL PATHOLOGY REPORT NAME: ADALBERTO RUSSO SURG PATH #: [id number] MR #: [id number] SPECIMEN CLASS: SI BILLING #: [id number] ALT ID #: LOCATION: [id number] DATE OF PROCEDURE: 09/24/2020 AGE: 55 SEX: [...] specimen is submitted in cassette L1. (crow) /09/24/2020 Specimen Performing Organization Address City/State/ZIP Code P carol Number MAIN LAB [address] [place] [address] documented in this encounter Visit Diagnoses Diagnosis Elevated PSA - Primary Elevated prostate specific antigen (PSA ) documented in this encounter Administered Medications Action Date Dose Rate Site Medication Order MAR Action 09/24/2020 12:40 PM CDT 80 mg Deltoid, Right gentamicin injection 80 mg Given 80 mg, Intramuscular, ONCE, 1 dose, On Amanda 09/24/20 at 1330 09/24/2020 1:23 PM CDT 10 mL lidocaine 1 % (10mg/mL) injection 10 mL Given 10 mL, Injection, ONCE, 1 dose, On [facility] 09/24/20 at 1330, To be used for procedures. documented in this encounter Additional Health Concerns Assessment Noted Time A fall risk assessment has been completed for the pat ient 08/31/2020 1:08 PM CDT documented as of this encounter
--- OUTSIDE RECORDS SUMMARY | 2020-10-27 07:56 | XMS REPORT | Encounter Summary ---
Author Author [facility] Organization [facility] Address Unknown Phone Unavailable Care Team Providers Care Rehabilitation Services Director Name Role Phone Dpt [facility] PCP Brenda Hauser PA-C Unavailable Unavailable Melodie Etienne MD Unavailable Reason for Visit * Reason Onset Date Comments Results 08/31/2020 PSA from today afte r clinic visit Encounter Details Care Team Description Date Type Department Marilee Delatorre, MOLD MOVER-MANAGER PERSONNEL SELECTION [address] [place] [address] [phone] Results (PSA from today after clinic vis it) 08/31/2020 Telephone Oncology: [address] [place] [address] Social History Date Tobacco Use Types Packs/Day [...] End Date Prescription Sig Dispensed Refills 09/23/2020 09/02/2020 ciprofloxacin (CIPRO) 500 Take one 6 tablet 0 mg tablet tablet by mouth twice daily for 3 days. Start day prior to prostate biopsy. documented in this encounter Miscellaneous Notes * Telephone Encounter - Marilee Delatorre APRN-NP - 08/31/2020 4:19 PM CDT I called and spoke with Gene to let him know of his PSA result that he had drawn after his clinic visit, it returned at 5.54, decreased from previous value that was drawn in June of 6.53. He expressed in clinic if his PSA was still elevat ed he would pursue the prostate biopsy and is still interested in okay with this plan. He has a personal history of colon cancer, he had a colon resection in and received 8 cycles of chemotherapy. I did review biopsy instructions wit h him in clinic and provided them in his AVS and printed before he left the clin ic. I will send in his antibiotic to the [facility]. I I am not able to send int o [facility], he wants it sent to [facility] in [place]. Labs: [facility] PSA Hx: Lab Results Component Value Date PSA 5.54 (H) 08/31/2020 documented in this encounter Plan of Treatment Not on filedocumented as of this encounter Visit Diagnoses Not on filedocumented in this encounter Additional Health Concerns Assessment Noted Time A fall risk assessment has been completed for the pat ient 08/31/2020 1:08 PM CDT documented as of this encounter
--- OUTSIDE RECORDS SUMMARY | 2020-10-27 07:56 | XMS REPORT | Encounter Summary ---
Author Author [facility] Organization [facility] Address Unknown Phone Unavailable Care Team Providers Care Job Checker Name Role Phone Dpt [facility] PCP Brenda Hauser PA-C Unavailable Unavailable Melodie Etienne MD Unavailable Encounter Details Care Team Description Date Type Department 09/24/2020 Travel Social History Date Tobacco Use Types Packs/Day [...] impairment: Yes documented as of this encounter Plan of Treatment Not on filedocumented as of this encounter Visit Diagnoses Not on filedocumented in this encounter Additional Health Concerns Assessment Noted Time A fall risk assessment has been completed for the pat ient 08/31/2020 1:08 PM CDT documented as of this encounter
--- OUTSIDE RECORDS SUMMARY | 2020-10-27 07:56 | XMS REPORT | Encounter Summary ---
Author Author [facility] Organization [facility] Address Unknown Phone Unavailable Care Team Providers Care Performance Improvement Specialist Name Role Phone Dpt [facility] PCP Brenda Hauser PA-C Unavailable Unavailable Melodie Etienne MD Unavailable Encounter Details Care Team Description Date Type Department 08/31/2020 Travel Social History Date Tobacco Use Types [...]
--- OUTSIDE RECORDS SUMMARY | 2020-10-27 07:56 | XMS REPORT | Encounter Summary ---
Author Author [facility] Organization [facility] Address Unknown Phone Unavailable Care Team Providers Care Seismic Engineer Name Role Phone Dpt [facility] PCP Brenda Hauser PA-C Unavailable Unavailable Melodie Etienne MD Unavailable Reason for Visit * Reason Comments New Patient Elevated Psa * Consult, Test & Treat (Routine) Referred By Contact Referred To Contact Status Reason Specialty Diagnoses / Procedures Cc - Ww Cl Exm/Proc Rm [address] [facility]. [place], [place] Authorized Oncology Diagnoses Elevated PSA Encounter Details Care Team Description Date Type Department Marilee Delatorre, JEWELRY SALES COORDINATOR-SCAN COORDINATOR [address] [place] [address] [phone] Elevated PSA (Primary Dx) 08/31/2020 Office Visit Oncology: [facility] [address] [place], [place] [phone] Social History Date Tobacco Use Types Packs/Day [...] Signs Reading Time Taken Comments Vital Sign 128/75 08/31/2020 1:08 PM CDT Blood Pressure 75 08/31/2020 1:08 PM CDT Pulse 36.7 C (98 F) 08/31/2020 1:08 PM CDT Temperature 16 08/31/2020 1:08 PM CDT Respiratory Rate 100% 08/31/2020 1:08 PM CDT Oxygen Saturation - - Inhaled Oxygen Concentration 96.8 kg (213 lb 6.4 oz) 08/31/2020 1:08 PM CDT without shoe s on Weight 177.3 cm (5' 9.8") 08/31/2020 1:08 PM CDT without shoes on , 08/31/2020 Height 30.79 08/31/2020 1:08 PM CDT Body Mass Index documented in this encounter Functional Status Date of Assessment Functional Status Response 11/27/2019 Does the patient have a hearing impairment: No 11/27/2019 Does the patient have a visual impairment: Yes documented as of this encounter Patient Instructions * Patient Instructions* Marilee Delatorre APRN-DOMINIK - 08/31/2020 1:30 PM CDT Instructions for Transrectal Ultrasound and Prostate Biopsy You have been scheduled for a transrectal ultrasound and a prostate needle biops y. Risks: As discussed in clinic, possible risks & complications of prostate biopsy include, but are not limited to blood in the urine, blood from the rectum during bowel movements, blood in the ejaculate fluid, difficulty or inability to urine (possibly requiring catheterization), chronic prostate or pelvic pain, erectile dysfunction, & false negative biopsy report (meaning presence of prostate cancer which was not detected by the biopsy procedure). Here are your pre-procedure instructions. 1. Stop aspirin, ibuprofen, Plavix, Coumadin (warfarin), and any other blood thinners 7 10 days prior to your scheduled appointment, unless specifically directed by your vaudeville actor or primary care provider (PCP). You may require clearance from your doctor to stop these medications. If you are unsure if a me dication is a blood thinner then please consult with your physician. 2. You should also discontinue herbal medications and supplements, especiall y medications like fish oil, megavitamins, ginko, and garlic at least 7 10 d ays prior to your procedure. 3. You will be given a prescription for an antibiotic, probably Ciprofloxaci n although your provider may recommend a different antibiotic. Unless instructe d otherwise, start taking the antibiotic the morning of your biopsy. 4. Approximately 2 3 hours before your arrival time, use an enema (any g eneric brand available at your pharmacy is okay). The enema kit is obtained ove r the counter at any pharmacy. The instructions for use will be included with dar patel enema. 5. You will be given an intramuscular antibiotic injection approximately 30- 60 minutes prior to your procedure when you arrive at the clinic. 6. Please eat and drink normally before your prostate biopsy. 7. Check in 45 minutes before your scheduled procedure. The location of you r biopsy will be provided when your biopsy is scheduled. The procedure takes approximately 30 minutes. You will be able to drive followi ng the biopsy and may return to non-strenuous activity the following day. You s hould avoid heavy lifting, heavy exercise, riding theoretical physicist, tractor riding, an d motorcycle riding for at least two days following the biopsy. documented in this encounter Progress Notes * Marilee Delatorre APRN-NP - 08/31/2020 1:30 PM CDT Name: Adalberto Magana : 1965 AGE: 55 y.o . DATE OF SERVICE: 08/31/2020 Subjective: Reason for Visit: New Patient and Elevated Psa Adalberto Magana is a 55 y.o. male. Cancer Staging No matching staging information was found for the patient. History of Present Illness Mr. Adalberto Magana is a very pleasant 55-year-old male, who is referred by HERRERA Hernandez for prostate cancer screening. Most recent PSA a was drawn on 06/16/2020, PSA was 6.53 ng/mL. Normal age-adjusted PSA for gentleman in his la te 50s, PSA should be less than or equal to 3.0 ng/mL. His past medical history is significant for melanoma, rectum cancer, HTN and HLD . PSA history (up to last 5 years): 06/16/2020 PSA 6.53 ng/mL 05/05/2020 PSA 4.49 ng/mL 03/03/2020 PSA 5.50 ng/mL 11/26/2019 PSA 5.43 ng/mL 04/02/2019 PSA 4.48 ng/mL 12/25/2018 PSA 4.55 ng/mL 08/23/2016 PSA 3.02 ng/mL 07/07/2015 PSA 2.88 ng/mL He has not had a prior prostate biopsy. He does not have a history of enlarged prostate/BPH. He denies any urinary tract infection, pyelonephritis or prostati tis. He does not have a personal history of colon cancer, pancreatic cancer, breast c ancer, or prostate cancer. He does have a personal history of colon cancer, he was treated in 2013, he had a colon resection and [address] [facility]. He denies any urgency, states he urinates every hour during the day. He has occ asional nocturia x1, states that if his dog wakes him up he gets up to go urinat e. He feels that he empties his bladder most of the time. He denies any hematu herminia or recent infections. He describes his stream is a moderate full stream, oc casional split stream. He does have occasional hesitancy and intermittent break in his stream. He does have functional erections for sexual intercourse without the use of any medications interventions. Patient in clinic with and 10 year old granddaughter. He is retired [employer]. Medical History: Diagnosis Date Back pain Cancer of colon (HCC) 2013 colon resection, 8 rounds of chemotherapy at the [place] Cancer of skin 2019 melanoma, right inner ankle, right calf, right side of back, left arm History of colon cancer stage 4 History of skin cancer Hypertension Surgical History: Procedure Laterality Date HX KNEE SURGERY Right 1979 torn meniscus SHOULDER SURGERY Right 2010 bone spur ROTATOR CUFF REPAIR Left 2013 ANKLE SURGERY Right 01/2017 2 moles HX HEART CATHETERIZATION 07/2020 palpitations, going to have sleep study CATARACT REMOVAL Bilateral Family History Problem Relation Age of Onset Hypertension Mother Hypertension Father COPD Sister Post-Traumatic Stress Disorder (PTSD) Sister Social History Socioeconomic History Marital status: Single Spouse name: Not on file Number of children: Not on file Years of education: Not on file Highest education level: Not on file Occupational History Not on file Tobacco Use Smoking status: Never Smoker Smokeless tobacco: Current User Types: Chew Substance and Sexual Activity Alcohol use: Yes Alcohol/week: 2.0 standard drinks Types: 2 Cans of beer per week Drug use: Never Sexual activity: Not Currently Other Topics Concern Not on file Social History Narrative Not on file Review of Systems Constitutional: Negative for activity change, appetite change, chills, diaphores is, fatigue, fever and unexpected weight change. HENT: Negative for congestion, hearing loss, mouth sores, rhinorrhea, sinus pres sure, sore throat and trouble swallowing. Eyes: Negative for discharge and visual disturbance. Respiratory: Positive for chest tightness and shortness of breath. Negative for apnea, cough and wheezing. Cardiovascular: Positive for chest pain and palpitations. Negative for leg swell ing. Gastrointestinal: Negative for abdominal pain, blood in stool, constipation, shakira rrhea, nausea, rectal pain and vomiting. Genitourinary: Positive for difficulty urinating and urgency. Negative for decre ased urine volume, discharge, dysuria, enuresis, flank pain, frequency, genital sores, hematuria, penile pain, penile swelling, scrotal swelling and testicular pain. Musculoskeletal: Positive for arthralgias and back pain. Negative for gait probl em and myalgias. Skin: Negative for rash and wound. Neurological: Positive for dizziness, weakness, light-headedness and headaches. Negative for tremors, seizures, syncope and numbness. Hematological: Negative for adenopathy. Does not bruise/bleed easily. Psychiatric/Behavioral: Negative for agitation, behavioral problems, decreased c oncentration, dysphoric mood and sleep disturbance. The patient is not nervous/a nxious. Objective: aspirin EC 325 mg tablet Take 325 mg by mouth daily. docosahexaenoic acid/epa (FISH OIL PO) Take by mouth daily. gabapentin (NEURONTIN) 300 mg capsule Take 300 mg by mouth at bedtime as nee ded. hydroCHLOROthiazide (HYDRODIURIL) 25 mg tablet Take 25 mg by mouth daily. ketoconazole (NIZORAL) 2 % topical shampoo USE SHAMPOO ON AFFECTED AREA TWIC E WEEKLY LATHER TO SCALP, LET SIT FOR 5 MINUTES, THEN RINSE OUT lisinopriL (ZESTRIL) 40 mg tablet Take 40 mg by mouth daily. meloxicam (MOBIC) 15 mg tablet Take 15 mg by mouth as Needed for Pain. simvastatin (ZOCOR) 10 mg tablet Take 10 mg by mouth daily. temazepam (RESTORIL) 15 mg capsule Vitals: 08/31/20 1308 BP: 128/75 BP Source: Arm, Right Upper Patient Position: Sitting Pulse: 75 Resp: 16 Temp: 36.7 C (98 F) TempSrc: Oral SpO2: 100% Weight: 96.8 kg (213 lb 6.4 oz) Height: 177.3 cm (69.8") PainSc: Zero Body mass index is 30.79 kg/m. Pain Score: Zero Fatigue Scale: 3 Labs: [facility] PSA Hx: No results found for: PSA Pain Addressed: N/A Patient Evaluated for a Clinical Trial: No treatment clinical trial available fo r this patient. Eastern Cooperative Oncology Group performance status is 0, Fully active, able t o carry on all pre-disease performance without restriction.. Physical Exam Vitals reviewed. Constitutional: General: He is not in acute distress. Appearance: Normal appearance. He is not ill-appearing. HENT: Head: Normocephalic and atraumatic. Eyes: General: No scleral icterus. Extraocular Movements: Extraocular movements intact. Conjunctiva/sclera: Conjunctivae normal. Pulmonary: Effort: Pulmonary effort is normal. No respiratory distress. Abdominal: General: There is no distension. Palpations: Abdomen is soft. Genitourinary: Comments: RAMIREZ performed, ~40 gram prostate, no nodules, tenderness or firmnes s noted Natasha Claros MA present for the exam Musculoskeletal: General: No swelling. Normal range of motion. Cervical back: Normal range of motion. Skin: General: Skin is warm and dry. Neurological: Mental Status: He is alert and oriented to person, place, and time. Psychiatric: Mood and Affect: Mood normal. Behavior: Behavior normal. Thought Content: Thought content normal. Judgment: Judgment normal. Assessment and Plan: Problem Elevated Psa Elevated PSA I had the pleasure of visiting with Mr. Adalberto Mckinney to discuss his PSA. I rev iewed what PSA is and why it is used in the screening for prostate cancer. I th en explained how PSA levels factor into decision making for further prostate can cer testing. Additionally, we reviewed how his current health factors into the decision to pursue prostate cancer screening. We then discussed initial steps for a biopsy naive patient with an elevated PSA. Specifically I reviewed the role of transrectal ultrasound guided prostate bio psies as the standard of care for further testing. I reviewed the procedural ri sks, including hematuria, hematospermia, hematochezia, pain, infection, and even transient erectile dysfunction. Additional options reviewed included up-front mpMRI with directed biopsy if a le yane is identified versus standard biopsy if the mpMRI were negative. I explain ed that this approach may reduce the need for a biopsy and improve the accuracy, however, this is not the standard of care approach, and therefore there is the risk that he would be liable for out of pocket expense if he were to choose upfr ont MRI, patient states that he cannot have an MRI. Similarly I reviewed the role of biomarkers in improving our ability to assess t he risk of harboring prostate cancer, specifically the ExoDx. Ultimately the patient elected repeat PSA today. Therefore our plan is as follows: 1. PSA today, will call with the results 2. If PSA is still elevated, will pursue prostate biopsy 3. Biopsy instructions reviewed in clinic and provided in AVS [facility] documented in this encounter Plan of Treatment Not on filedocumented as of this encounter Results * PROSTATIC SPECIFIC ANTIGEN-PSA (08/31/2020 1:58 PM CDT) Prostatic 5.54 (H) <3.01 NG/ML [facility] Specific Comment: Antigen REFERENCE RANGES AGE PSA VALUE <50 <=1.5 50-54 <=2.0 55-59 <=3.0 60-69 <=4.0 70+ <=6.0 Specimen Blood Performing Organization Address City/State/ZIP Code P carol Number [facility] [address] [place] [address] documented in this encounter Visit Diagnoses Diagnosis Elevated PSA - Primary Elevated prostate specific antigen (PSA ) * Assessment & Plan Note - Marilee Delatorre APRN-NP - 08/31/2020 1:55 PM CDT Associated Problem(s): Elevated PSA I had the pleasure of visiting with Mr. Adalberto Mckinney to discuss his PSA. I rev iewed what PSA is and why it is used in the screening for prostate cancer. I th en explained how PSA levels factor into decision making for further prostate can cer testing. Additionally, we reviewed how his current health factors into the decision to pursue prostate cancer screening. We then discussed initial steps for a biopsy naive patient with an elevated PSA. Specifically I reviewed the role of transrectal ultrasound guided prostate bio psies as the standard of care for further testing. I reviewed the procedural ri sks, including hematuria, hematospermia, hematochezia, pain, infection, and even transient erectile dysfunction. Additional options reviewed included up-front mpMRI with directed biopsy if a le yane is identified versus standard biopsy if the mpMRI were negative. I explain ed that this approach may reduce the need for a biopsy and improve the accuracy, however, this is not the standard of care approach, and therefore there is the risk that he would be liable for out of pocket expense if he were to choose upfr ont MRI, patient states that he cannot have an MRI. Similarly I reviewed the role of biomarkers in improving our ability to assess t he risk of harboring prostate cancer, specifically the ExoDx. Ultimately the patient elected repeat PSA today. Therefore our plan is as follows: 1. PSA today, will call with the results 2. If PSA is still elevated, will pursue prostate biopsy 3. Biopsy instructions reviewed in clinic and provided in AVS documented in this encounter Historical Medications * This list may reflect changes made after this encounter. Start Date End Date Medication Sig Dispensed Refills meloxicam (MOBIC) 15 mg Take 15 mg by 0 tablet mouth as Needed for Pain. 08/05/2020 temazepam (RESTORIL) 15 0 mg capsule added in this encounter Additional Health Concerns Assessment Noted Time A fall risk assessment has been completed for the pat ient 08/31/2020 1:08 PM CDT documented as of this encounter
[2020-10-27 08:04] VITALS: BP 119/74
[~2020-10-27 09:00] MED LIST changes: +LIDOCAINE 1% INJ 20 ML 20 ML VIAL INJ ONE; +LIDOCAINE 1% INJ 20 ML 20 ML VIAL ONE
--- NOTE | 2020-10-27 13:18 | OPERATIVE REPORT ---
DATE OF SERVICE: 10/27/2020 PREOPERATIVE DIAGNOSIS: Palpitations. POSTOPERATIVE DIAGNOSIS: Palpitations. PROCEDURE: Implantable loop recorder implantation. INDICATIONS: The patient is a 55-year-old man who has been bothered by palpitations that are infrequent and that have not been picked up on Holter monitoring. Implantable loop recorder implantation was carried out today after having obtained an informed consent. DESCRIPTION OF PROCEDURE: [facility] The left prepectoral area was prepared and draped in the usual sterile fashion. Lidocaine 1% was used for local anesthesia. The tools provided with R[employer]ink Autismtronic LINQ II device were used to make a subcutaneous pocket anterior to the fourth intercostal space into which the device was placed and the wound edges were closed using Dermabond and Steri-Strips. He tolerated the procedure well. The serial number of the device is [id number]. Job ID: [id number] DocumentID: [id number] Dictated Date: 10/27/2020 09:24:30 Commissioning Manager Date: 10/27/2020 13:18:20 Dictated By: JANESSA GLYNN MD, MA, FACP, FACC,
== END 2020-10-27 09:46 | disposition home or self-care (01) ==
LOC: CATH 09:00
PROVIDERS: ATTEND Internal Medicine Cardiovascular Disease
DX: R00.2 Palpitations (principal); I10 Essential (primary) hypertension; R07.89 Other chest pain; E11.9 Type 2 diabetes mellitus without complications; E78.2 Mixed hyperlipidemia; I47.1 Supraventricular tachycardia; G47.30 Sleep apnea, unspecified; Z79.82 Long term (current) use of aspirin; Z79.899 Other long term (current) drug therapy
CPT/HCPCS: 33285

== ENCOUNTER 2021-01-06 20:09 | Outpatient (CLI) | payer OTHER ==
[~2021-01-06 20:09] MED LIST changes: -LIDOCAINE 1% INJ 20 ML 20 ML VIAL INJ ONE; -LIDOCAINE 1% INJ 20 ML 20 ML VIAL ONE
== END 2021-01-07 06:40 | disposition home or self-care (01) ==
LOC: SLEEP 20:09
PROVIDERS: ATTEND Otolaryngology Otolaryngology/Facial Plastic Surgery
DX: G47.33 Obstructive sleep apnea (adult) (pediatric) (principal)
CPT/HCPCS: 95810

== ENCOUNTER 2022-06-07 11:18 | Day surgery (SDC) | payer OTHER ==
[~2022-06-07] VITALS: Ht 182.9 cm; Wt 104.4 kg
[2022-06-07] MEDS ORDERED: HEParin (CATH LAB) 2,000 ML IV ONE (11:36)
[2022-06-07] MEDS ORDERED: NS IV 1000 ML 1,000 ML ONE (11:36)
[2022-06-07] MEDS ORDERED: LIDOCAINE 1% INJ 20 ML VIAL ONE (11:36)
[2022-06-07 11:45] VITALS: BP 136/78
[2022-06-07] MEDS ORDERED: NS IV 1000 ML 1,000 ML IV SCH ×2 (11:45→17:00)
[2022-06-07 11:59] LABS: HEMATOCRIT 41 % (40-54); HEMOGLOBIN 14.8 g/dL (13.3-17.7); MEAN CORPUSCULAR HEMOGLOBIN 32 pg (25-34); MEAN CORPUSCULAR HGB CONC 36 g/dL (32-36); MEAN CORPUSCULAR VOLUME 87 fL (80-99); MEAN PLATELET VOLUME 9.7 fL (9.0-12.2); PLATELET COUNT 189 10^3/uL (130-400); WHITE BLOOD COUNT 5.5 10^3/uL (4.3-11.0)
[2022-06-07 12:12] LABS: PROTHROMBIN TIME PATIENT 13.3 SEC (12.2-14.7)
[2022-06-07 12:18] LABS: ALANINE AMINOTRANSFERASE 44 U/L (0-55); ALBUMIN 4.6 GM/DL (3.2-4.5); ALKALINE PHOSPHATASE 52 U/L (40-136); BILIRUBIN,TOTAL 0.6 MG/DL (0.1-1.0); BUN/CREATININE RATIO 14; CALCIUM 9.7 MG/DL (8.5-10.1); CARBON DIOXIDE 21 MMOL/L (21-32); CHLORIDE 109 MMOL/L (98-107); CHOLESTEROL 133 MG/DL (< 200); CREATININE SERUM 0.85 MG/DL (0.60-1.30); GFR ESTIMATED 101; GLUCOSE 94 MG/DL (70-105); HDL CHOLESTEROL 50 MG/DL (40-60); POTASSIUM 4.3 MMOL/L (3.6-5.0); SODIUM 141 MMOL/L (135-145); TOTAL PROTEIN 7.6 GM/DL (6.4-8.2); TRIGLYCERIDES 87 MG/DL (<150); VLDL CHOLESTEROL 17 MG/DL (5-40)
[2022-06-07] MEDS ORDERED: MELO15TA39 PO (12:38)
[2022-06-07] MEDS ORDERED: CHOL200059 PO (12:38)
[2022-06-07] MEDS ORDERED: TEMA15CA PO (12:38)
[2022-06-07] MEDS ORDERED: GABA300C PO (12:38)
[2022-06-07] MEDS ORDERED: ASPI-999 PO (12:38)
[2022-06-07] MEDS ORDERED: TMSL.4C PO (12:38)
[2022-06-07] MEDS ORDERED: ROSU10TA28 PO (12:38)
[2022-06-07] MEDS ORDERED: DILT240C90 PO (12:38)
[2022-06-07] MEDS ORDERED: LIDO700A45 TP (12:38)
[2022-06-07] MEDS ORDERED: CYCL10TA25 PO (12:38)
[2022-06-07] MEDS ORDERED: MIDAZOLAM 5 MG/5 ML (VERSED) VIAL ONE (15:30)
[2022-06-07] MEDS ORDERED: fentaNYL INJ 100 MCG/2 ML AMP ONE (15:30)
[2022-06-07] MEDS ORDERED: VERAPAMIL 5 MG/2 ML (CALAN) VIAL IV ONE (15:30)
[2022-06-07] MEDS ORDERED: NITRO DRIP 25000 MCG/D5W 250 ML IV ONE (15:31)
[2022-06-07] MEDS ORDERED: HEParin 1000 UNIT/ML (10ML VIAL) FOR BOLUS ONE (15:31)
[2022-06-07] MEDS ORDERED: diphenhydrAMINE 50 MG/ML INJ (BENADRYL) ONE (16:15)
--- NOTE | 2022-06-07 16:44 | Cardiac Procedure Note-CS/ASA ---
Pre-Procedure Note Pre-Op Procedure Note Date of Available H&P: Jun 03, 2022 Date H&P Reviewed: Jun 07, 2022 Time H&P Reviewed: 15:30 History & Physical: H&P Reviewed, No changes noted Moderate Sedation PreProcedure ASA Score 3 Airway Lungs Heart ASA score ASA 1: a normal healthy patient ASA 2: a patient with a mild systemic disease (mid diabetes, controlled hypertension, obesity ASA 3: a patient with a severe systemic disease that limits activity (angina, COPD, prior Myocardial infarction) ASA 4: a patient with an incapacitating disease that is a constant threat to life (CHF, renal failure) ASA 5: a moribund patient not expected to survive 24 hrs. (ruptured aneurysm) ASA 6: a declared brain- patient whose organs are being harvested. For emergent operations, add the letter E after the classification Mallampati Classification Grade 2 Sedation Plan Analgesia, Amnesia, Plan communicated to team members The patient is an appropriate candidate to undergo the planned procedure, sedation, and anesthesia. The patient immediately re-assessed prior to indication. JANESSA GLYNN MD FACP FAC [facility]S Jun 07, 2022 16:44
--- NOTE | 2022-06-07 16:49 | Cardiac Cath Report ---
CARDIAC CATHETERIZATION DATE OF PROCEDURE: 06-07-22 INDICATION: Wide-complex tachycardia on ILR transmission HISTORY: The patient is a 56 year old male wit palpitations who, on one occasion, showed wide-complex tachycardia on his ILR transmissions. Card cath recommended PROCEDURES PERFORMED: 1. Cor angio 2. LHC PROCEDURE DESCRIPTION: After informed consent and in the fasting state, left heart catheterization was performed through the R radial artery utilizing a 6 Indonesian system by percutaneous approach. TIG cath for L cor angio. JR4 cath for R cor angio and LHC and LV angio. All catheters were exchanged over a guidewire. HEMODYNAMICS: LVEDP 14 mmHg. No significant pressure gradient on pullback CORONARY ANGIOGRAPHY: Left main coronary artery: Ok Left anterior descending coronary artery: Ok Left circumflex coronary artery: Dominant, Ok Right coronary artery: Non-dominant, Ok LV ANGIOGRAPHY: No wall motion abnormality in the [place] view. LVEF 60% IMPRESSION: 1. No significant CAD 2. LVEDP 14 mmHg 3. LVEF approx 60% JANESSA GLYNN MD FACP [facility] Jun 07, 2022 16:49
--- NOTE | 2022-06-07 16:52 | Discharge Inst-Post CATH ---
Discharge Inst-CATH/EP Post Cardiac Cath/EP D/C Inst Follow Up/Plan F/u with Dr Etienne in 2 weeks ACTIVITY * Go Home directly and rest. * Limit activity of the leg (or wrist if it was used) for 7 days including aerobics, swimming, jogging, bicycling, etc. * Restrict stair-climbing for 7 days if possible, if not, climb up with your no n-cath leg, then bring together on the same step. * Avoid lifting, pushing, pulling or excessive movement of the affected ext remity for 7 days. * Customary sexual activity may be resumed after 2 days-use caution not to use a position that strains or causes pain to the affected extremity. * No driving for 24 hours. * NO SMOKING. * Avoid straining for bowel movements for 7 days. * Gentle walking on level ground is allowed. * Returning to work will depend on the type of procedure and the results. Your doctor will discuss this with you. CALL YOUR DOCTOR FOR ANY OF THE FOLLOWING: *If bleeding from the puncture site occurs- Apply gentle pressure to site with clean cloth and call your doctor or EMS. * If a knot or lump forms under the skin, increases in size, or causes pain. * If bruising appears to be worsening or moving further down your leg instead of disappearing. * Temperature above 101 F. CARE OF YOUR GROIN INCISION; * Bruising or purple discoloration of the skin near the puncture site is common. * You may shower only, no bathtub bathing for 5 days. Be careful to avoid slipping as your leg may feel stiff. * If a closure device was used on your femoral artery, please see the attached guide regarding care of the device and your leg. * Leave dressing on FOR 24 hours. CARE OF YOUR WRIST INCISION; * Bruising or purple discoloration of the skin near the puncture site is common. * You may shower. * DO NOT submerge wrist. * Leave dressing on FOR 24 hours. JANESSA ETIENNE MD FACP [facility] Jun 07, 2022 16:52
--- NOTE | 2022-06-07 16:52 | Discharge Inst-Cardiology ---
Discharge Inst-Cardiac Discharge Medications Continued Medications: Aspirin (Aspirin) 81 Mg Tab.chew 81 MG PO DAILY, TAB Cholecalciferol (Vitamin D3) (Vitamin D3) 50 Mcg (2000 Unit) Tablet 50 MCG PO DAILY, TAB Cyclobenzaprine HCl (Cyclobenzaprine HCl) 10 Mg Tablet 10 MG PO TID PRN for MUSCLE SPASMS, TAB Diltiazem HCl (Diltiazem 24Hr Cd) 240 Mg Cap.er.24h 240 MG PO DAILY, CAP Gabapentin (Neurontin) 300 Mg Capsule 300 MG PO BID, CAP Lidocaine (Lidocaine 5% Patch) 5 % Adh..patch 1 EACH TP Q12H PRN for Neuropathic pain, PATCH Meloxicam (Meloxicam) 15 Mg Tablet 15 MG PO HS, TAB Rosuvastatin Calcium (Rosuvastatin Calcium) 10 Mg Tablet 10 MG PO HS, TAB Tamsulosin HCl (Flomax) 0.4 Mg Cap 0.4 MG PO HS, CAP Temazepam (Temazepam) 15 Mg Capsule 15 MG PO HS PRN for SLEEP, CAP JANESSA GLYNN MD FACP [facility] Jun 07, 2022 16:52
[2022-06-07] MEDS ORDERED: PATIENT MAY USE OWN MEDS, ALL PO SCH (17:00)
[2022-06-07 17:01] VITALS: BP 132/77
[2022-06-07 17:15] VITALS: BP 127/73
[2022-06-07 17:30] VITALS: BP 125/69
[2022-06-07 17:45] VITALS: BP 134/67
[2022-06-07 18:00] VITALS: BP 130/84
== END 2022-06-07 18:15 | disposition home or self-care (01) ==
LOC: CATH 11:18 → ICU 17:00 → CATH 18:15
PROVIDERS: ATTEND Internal Medicine Cardiovascular Disease
DX: I47.20 Ventricular tachycardia, unspecified (principal); I47.1 Supraventricular tachycardia; R00.2 Palpitations; I10 Essential (primary) hypertension; E78.2 Mixed hyperlipidemia; F17.220 Nicotine dependence, chewing tobacco, uncomplicated; Z79.899 Other long term (current) drug therapy; Z86.39 Personal history of other endocrine, nutritional and metabolic disease
CPT/HCPCS: 36415; 80053; 80061; 85027; 85610; 85730; 87081; 93005; 93458